=== PATIENT | male | born 1995 | race African-American/Black ===

== ENCOUNTER 2019-07-17 12:02 | Emergency (ER) | payer OTHER, SELFPAY ==
[2019-07-17] MEDS ORDERED: IBUPROFEN 200 MG TAB PO ONE (12:19)
--- NOTE | 2019-07-17 12:53 | RAD REPORT ---
EXAM DESCRIPTION: RAD - Shoulder Left 2 View - 07/17/2019 12:27 pm CLINICAL HISTORY: Left shoulder pain FINDINGS: No fracture or dislocation is seen.
--- NOTE | 2019-07-17 12:53 | RAD REPORT ---
EXAM DESCRIPTION: CT - [id number] - 07/17/2019 12:39 pm CLINICAL HISTORY: Blunt force trauma to the head and, headache, left-sided neck and shoulder pain, b lurred vision COMPARISON: CT head and cervical April 2012 TECHNIQUE: Axial 5 mm thick images of the head were obtained. Axial 2 mm thick images of the cervic al spine were obtained with sagittal and coronal reconstruction images generated and reviewed. All CT scans are performed using dose optimization technique as appropriate and may include automated exposure control or mA/KV adjustment according to patient size. FINDINGS: No intracranial hemorrhage, mass, edema or acute intracranial finding. No suspicion for acute infarct ion. No extra-axial fluid collections. Mastoid air cells and paranasal sinuses are clear. No globe or orbit abnormality seen. No skull fracture or acute bone finding. Cervical body height and alignment are normal. No disk space narrowing. No fracture or acute bony abn ormality. No paraspinal mass or hematoma. IMPRESSION: Negative CT head examination for acute or significant finding. Negative CT cervical spine examination for acute or significant finding. Central canal detail is inh erently limited.
--- NOTE | 2019-07-17 13:23 | ER ---
Nurse's Notes [facility] Name: Miguel Jo Age: 24 yrs Sex: Male : 1995 Arrival Date: 07/17/2019 Time: 12:04 Bed 13 Private MD: Diagnosis: Superficial injury of head;Pain in left shoulder;Contusion of left shoulder Presentation: 07/17 12:10 Presenting complaint: Patient states: Metal bars and some signs fell on my head and L ca1 shoulder. Happened around 10Am today. C/O headache, blurring of vision. Denies LOC, N/V. Transition of care: patient was not received from another setting of care. Onset of symptoms was July 17, 2019. Risk Assessment: Do you want to hurt yourself or someone else? Patient reports no desire to harm self or others. Initial Sepsis Screen: Does the patient meet any 2 criteria? No. Patient's initial sepsis screen is negative. Does the patient have a suspected source of infection? No. Patient's initial sepsis screen is negative. Care prior to arrival: None. 12:10 Method Of Arrival: Wheelchair ca1 12:10 Acuity: AWLTER 3 ca1 13:15 Mechanism of Injury: a piece of metal fell on him. Trauma event details: Injury mg2 occurred in the [facility]. Trauma Activation: Not Applicable Physician: ED Physician; Name: ; Notified At: ; Arrived At: Physician: General Surgeon; Name: ; Notified At: ; Arrived At: Physician: Radiology; Name: ; Notified At: ; Arrived At: Physician: Respiratory; Name: ; Notified At: ; Arrived At: Physician: Lab; Name: ; Notified At: ; Arrived At: Historical: - Allergies: 12:12 No Known Allergies; ca1 - Home Meds: 12:12 None [Active]; ca1 - PMHx: 12:12 None; ca1 - PSHx: 12:12 None; ca1 - Immunization history:: Adult Immunizations up to date, Flu vaccine is not up to date. - Coronavirus screen:: The patient has NOT traveled to [place], [place], or [place] in the past 14 days. The patient has NOT had contact with known/suspected case of Coronavirus?. - Immunization history: Last tetanus immunization: unknown. - Social history:: Smoking status: Patient reports the use of cigarette tobacco products, smokes one-half pack cigarettes per day. - Family history:: not pertinent. - Ebola Screening: : Patient negative for fever greater than or equal to 101.5 degrees Fahrenheit, and additional compatible Ebola Virus Disease symptoms Patient denies exposure to infectious person Patient denies travel to an Ebola-affected area in the 21 days before illness onset No symptoms or risks identified at this time. Screenin:14 Abuse screen: Denies threats or abuse. Denies injuries from another. Nutritional mg2 screening: No deficits noted. Tuberculosis screening: No symptoms or risk factors identified. Fall risk None identified. Exposure risk/Travel Screening: None identified. 13:16 Fall Risk None identified. mg2 Primary Survey: 13:13 NO uncontrolled hemorrhage observed. A: The patient is alert. Airway: patent, No mg2 supplemental oxygen in use on arrival. Breathing/Chest: Respiratory pattern: regular, Respiratory effort: spontaneous, unlabored, Breath sounds: clear, Chest inspection: symmetrical rise and fall of the chest. Circulation: Skin color: pink. Disability Alert. Exposure/Environment: All clothing and personal items were removed. Forensic evidence collection is not deemed to be indicated at this time. Items placed in patient belonging bag. There is no evidence of uncontrolled external bleeding. No obvious injuries are noted at this time. A warming method has been applied: A warm blanket has been provided to the patient. 13:40 Reassessment Airway Airway Patent Oxygen No O2 Breathing/Chest Respiratory pattern mg2 Regular Respiratory effort Spontaneous Unlabored Breath sounds Clear Circulation Color [place] Disability Alert. Secondary Survey: 13:14 HEENT: No deficits noted. Gastrointestinal: No deficits noted. : No deficits noted. mg2 Musculoskeletal: Circulation, motion, and sensation intact. Capillary refill < 3 seconds. Assessment: 13:12 General: Appears in no apparent distress. comfortable, Behavior is calm, cooperative. mg2 Pain: Complains of pain in top of head anbd shoulder. Neuro: Level of Consciousness is awake, alert, obeys commands, Oriented to person, place, time, situation. EENT: No signs and/or symptoms were reported regarding the EENT system. Cardiovascular: Capillary refill < 3 seconds Patient's skin is warm and dry. Respiratory: Airway is patent Respiratory effort is even, unlabored, Respiratory pattern is regular, symmetrical. GI: No signs and/or symptoms were reported involving the gastrointestinal system. :. : No signs and/or symptoms were reported regarding the genitourinary system. Derm: Skin is intact, is healthy with good turgor, Skin is pink, warm \T\ dry. normal. Musculoskeletal: Circulation, motion, and sensation intact. Capillary refill < 3 seconds. Vital Signs: 12:12 BP 131 / 89; Pulse 59; Resp 17 S; Temp 98.7(O); Pulse Ox 98% on R/A; Weight 102.06 kg ca1 (R); Height 5 ft. 9 in. (175.26 cm) (R); Pain 8/10; 12:12 Body Mass Index 33.23 (102.06 kg, 175.26 cm) ca1 Nicole Coma Score: 12:32 Eye Response: spontaneous(4). Verbal Response: oriented(5). Motor Response: obeys lizett commands(6). Total: 15. 13:16 Eye Response: spontaneous(4). Verbal Response: oriented(5). Motor Response: obeys mg2 commands(6). Total: 15. Trauma Score (Adult): 13:16 Eye Response: spontaneous(1); Verbal Response: oriented(1); Motor Response: obeys mg2 commands(2); Systolic BP: > 89 mm Hg(4); Respiratory Rate: 10 to 29 per min(4); Nicole Score: 15; Trauma Score: 12 ED Course: 12:04 Patient arrived in ED. rg4 12:05 Audie Harden MD is Attending Physician. lizett 12:12 Triage completed. ca1 12:12 Arm band placed on right wrist. ca1 12:50 Robin Amado, FAREED is Primary Nurse. mg2 13:12 Joshua Houston MD is Referral Physician. lizett 13:14 No provider procedures requiring assistance completed. Patient maintains SpO2 mg2 saturation greater than 95% on room air. 13:15 Patient has correct armband on for positive identification. mg2 13:15 Thermoregulation: warm blanket given to patient. mg2 13:40 Patient did not have IV access during this emergency room visit. mg2 Administered Medications: 12:15 Drug: Motrin 600 mg Route: PO; mg2 13:12 Follow up: Response: No adverse reaction mg2 Intake: 13:16 PO: 0ml; Total: 0ml. mg2 Outcome: 13:12 Discharge ordered by . lizett 13:40 Patient's length of stay was not longer than 2 hours. mg2 13:45 Discharged to home ambulatory, with family. mg2 13:45 Condition: stable 13:45 Discharge instructions given to patient, family, Instructed on discharge instructions, follow up and referral plans. Demonstrated understanding of instructions, follow-up care, medications, Prescriptions given X 1. 13:46 Patient left the ED. ca1 Signatures: Audie Harden MD MD cha Garcia, Rubi rg4 Robin Amado RN RN mg2 Pauline Vidal RN RN ca1
--- NOTE | 2019-07-17 13:23 | EDPHYS ---
Physician Documentation [facility] Name: Miguel Jo Age: 24 yrs Sex: Male : 1995 Arrival Date: 07/17/2019 Time: 12:04 Bed 13 Private MD: ED Physician Audie Harden HPI: 07/17 12:32 This 24 yrs old Black Male presents to ER via Wheelchair with complaints of Head Injury lizett Without LOC-Adult. 12:32 The patient or guardian reports pain. The complaints affect the top of head, left lizett frontal area and left side of the back of head. Context of injury: The problem was sustained at work. Onset: The symptoms/episode began/occurred just prior to arrival. Associated signs and symptoms: Pertinent positives: headache. Severity of symptoms: At their worst the symptoms were mild, moderate, in the emergency department the symptoms have improved, mildly. The patient has not experienced similar symptoms in the past. Historical: - Allergies: 12:12 No Known Allergies; ca1 - Home Meds: 12:12 None [Active]; ca1 - PMHx: 12:12 None; ca1 - PSHx: 12:12 None; ca1 - Immunization history:: Adult Immunizations up to date, Flu vaccine is not up to date. - Coronavirus screen:: The patient has NOT traveled to [place], [place], or [place] in the past 14 days. The patient has NOT had contact with known/suspected case of Coronavirus?. - Immunization history: Last tetanus immunization: unknown. - Social history:: Smoking status: Patient reports the use of cigarette tobacco products, smokes one-half pack cigarettes per day. - Family history:: not pertinent. - Ebola Screening: : Patient negative for fever greater than or equal to 101.5 degrees Fahrenheit, and additional compatible Ebola Virus Disease symptoms Patient denies exposure to infectious person Patient denies travel to an Ebola-affected area in the 21 days before illness onset No symptoms or risks identified at this time. ROS: 12:32 Constitutional: Negative for fever, chills, and weight loss, Eyes: Negative for injury, lizett pain, redness, and discharge, ENT: Negative for injury, pain, and discharge, Neck: Negative for injury, pain, and swelling, Cardiovascular: Negative for chest pain, palpitations, and edema, Respiratory: Negative for shortness of breath, cough, wheezing, and pleuritic chest pain, Abdomen/GI: Negative for abdominal pain, nausea, vomiting, diarrhea, and constipation, Back: Negative for injury and pain, : Negative for injury, bleeding, discharge, and swelling, Skin: Negative for injury, rash, and discoloration, Psych: Negative for depression, anxiety, suicide ideation, homicidal ideation, and hallucinations, Allergy/Immunology: Negative for hives, rash, and allergies, Endocrine: Negative for neck swelling, polydipsia, polyuria, polyphagia, and marked weight changes, Hematologic/Lymphatic: Negative for swollen nodes, abnormal bleeding, and unusual bruising. 12:32 MS/extremity: Positive for decreased range of motion, pain, tenderness, of the anterior aspect of left shoulder and posterior aspect of left shoulder. Exam: 12:32 Constitutional: This is a well developed, well nourished patient who is awake, alert, lizett and in no acute distress. Head/Face: Normocephalic, atraumatic. Eyes: Pupils equal round and reactive to light, extra-ocular motions intact. Lids and lashes normal. Conjunctiva and sclera are non-icteric and not injected. Cornea within normal limits. Periorbital areas with no swelling, redness, or edema. ENT: Nares patent. No nasal discharge, no septal abnormalities noted. Tympanic membranes are normal and external auditory canals are clear. Oropharynx with no redness, swelling, or masses, exudates, or evidence of obstruction, uvula midline. Mucous membranes moist. Neck: Trachea midline, no thyromegaly or masses palpated, and no cervical lymphadenopathy. Supple, full range of motion without nuchal rigidity, or vertebral point tenderness. No Meningismus. Chest/axilla: Normal chest wall appearance and motion. Nontender with no deformity. No lesions are appreciated. Cardiovascular: Regular rate and rhythm with a normal S1 and S2. No gallops, murmurs, or rubs. Normal PMI, no JVD. No pulse deficits. Respiratory: Lungs have equal breath sounds bilaterally, clear to auscultation and percussion. No rales, rhonchi or wheezes noted. No increased work of breathing, no retractions or nasal flaring. Abdomen/GI: Soft, non-tender, with normal bowel sounds. No distension or tympany. No guarding or rebound. No evidence of tenderness throughout. Back: No spinal tenderness. No costovertebral tenderness. Full range of motion. Male : Normal genitalia with no discharge or lesions. Skin: Warm, dry with normal turgor. Normal color with no rashes, no lesions, and no evidence of cellulitis. Neuro: Awake and alert, GCS 15, oriented to person, place, time, and situation. Cranial nerves II-XII grossly intact. Motor strength 5/5 in all extremities. Sensory grossly intact. Cerebellar exam normal. Normal gait. Psych: Awake, alert, with orientation to person, place and time. Behavior, mood, and affect are within normal limits. 12:32 Musculoskeletal/extremity: Extremities: noted in the posterior aspect of left shoulder: decreased ROM, pain, ROM: limited passive range of motion, limited active range of motion due to pain, Circulation is intact in all extremities. Sensation intact. Compartment Syndrome exam of affected extremity: is normal. DVT Exam: No signs of deep vein thrombosis. no pain, no swelling, no tenderness, negative Homans' sign noted on exam, no appreciated bluish discoloration, no erythema, no increased warmth. Vital Signs: 12:12 BP 131 / 89; Pulse 59; Resp 17 S; Temp 98.7(O); Pulse Ox 98% on R/A; Weight 102.06 kg ca1 (R); Height 5 ft. 9 in. (175.26 cm) (R); Pain 8/10; 12:12 Body Mass Index 33.23 (102.06 kg, 175.26 cm) ca1 Nicole Coma Score: 12:32 Eye Response: spontaneous(4). Verbal Response: oriented(5). Motor Response: obeys lizett commands(6). Total: 15. 13:16 Eye Response: spontaneous(4). Verbal Response: oriented(5). Motor Response: obeys mg2 commands(6). Total: 15. Trauma Score (Adult): 13:16 Eye Response: spontaneous(1); Verbal Response: oriented(1); Motor Response: obeys mg2 commands(2); Systolic BP: > 89 mm Hg(4); Respiratory Rate: 10 to 29 per min(4); Nicole Score: 15; Trauma Score: 12 MDM: 12:05 Patient medically screened. [facility] 12:35 Data reviewed: vital signs, nurses notes, radiologic studies, CT scan, plain films. [facility] 07/17 12:12 Order name: CT Head C Spine [facility] 07/17 12:12 Order name: Shoulder Left (2 View) XRAY [facility] 07/17 12:36 Order name: Ice pack; Complete Time: 12:[address] [facility] 07/17 13:19 Order name: RAD EDMS 07/17 13:19 Order name: CT EDMS Administered Medications: 12:15 Drug: Motrin 600 mg Route: PO; mg2 13:12 Follow up: Response: No adverse reaction mg2 Disposition: 07/17/19 13:12 Discharged to Home. Impression: Superficial injury of head, Pain in left shoulder, Contusion of left shoulder. - Condition is Stable. - Discharge Instructions: Head Injury, Adult, Musculoskeletal Pain, Shoulder Pain, Shoulder Pain, [id number], Head Injury, Adult, [id number]. - Prescriptions for Motrin IB 200 mg Oral Tablet - take 2 tablet by ORAL route every 6 hours As needed as needed with food; 20 tablet. - Medication Reconciliation Form, Thank You Letter, Antibiotic Education, Prescription Opioid Use, Work release form form. - Follow up: Private Physician; When: 2 - 3 days; Reason: Recheck today's complaints, Continuance of care, Re-evaluation by your physician. Follow up: Joshua Houston MD; When: 2 - 3 days; Reason: Recheck today's complaints, Re-evaluation by your physician. - Problem is new. - Symptoms have improved. Signatures: Dispatcher [employer] EDMS Audie Harden MD MD cha Gardose, Michele, RN RN mg2 Pauline Vidal RN RN ca1 Corrections: (The following items were deleted from the chart) 13:12 13:12 07/17/2019 13:12 Discharged to Home. Impression: Superficial injury of head; Pain lizett in left shoulder; Contusion of left shoulder. Condition is Stable. Discharge Instructions: Head Injury, Adult, Musculoskeletal Pain, Shoulder Pain, Shoulder Pain, [id number], Head Injury, Adult, [id number]. Prescriptions for Motrin IB 200 mg Oral Tablet - take 2 tablet by ORAL route every 6 hours As needed as needed with food; 20 tablet. and Forms are Medication Reconciliation Form, Thank You Letter, Antibiotic Education, Prescription Opioid Use. Follow up: Private Physician; When: 2 - 3 days; Reason: Recheck today's complaints, Continuance of care, Re-evaluation by your physician. Problem is new. Symptoms have improved. [facility] 13:46 13:12 07/17/2019 13:12 Discharged to Home. Impression: Superficial injury of head; Pain ca1 in left shoulder; Contusion of left shoulder. Condition is Stable. Discharge Instructions: Head Injury, Adult, Musculoskeletal Pain, Shoulder Pain, Shoulder Pain, [id number], Head Injury, Adult, [id number]. Prescriptions for Motrin IB 200 mg Oral Tablet - take 2 tablet by ORAL route every 6 hours As needed as needed with food; 20 tablet. and Forms are Medication Reconciliation Form, Thank You Letter, Antibiotic Education, Prescription Opioid Use. Follow up: Private Physician; When: 2 - 3 days; Reason: Recheck today's complaints, Continuance of care, Re-evaluation by your physician. Follow up: Dr. Joshua Houston; When: 2 - 3 days; Reason: Recheck today's complaints, Re-evaluation by your physician. Problem is new. Symptoms have improved. [facility]
[2019-07-17 14:07] VITALS: BP 131/89; TEMP 98.7; O2SAT 98
== END 2019-07-17 13:46 | disposition home or self-care (01) ==
LOC: ER 12:02
DX: S00.90XA Unspecified superficial injury of unspecified part of head, initial encounter (principal); S40.012A Contusion of left shoulder, initial encounter; M25.512 Pain in left shoulder; W22.8XXA Striking against or struck by other objects, initial encounter; Y93.9 Activity, unspecified; Y92.89 Other specified places as the place of occurrence of the external cause; Y99.8 Other external cause status
CPT/HCPCS: 70450; 72125; 99284